=== PATIENT | male | born 1990 | race African-American/Black ===

== ENCOUNTER 2024-04-04 09:40 | Day surgery (SDC) | payer OTHER ==
[2024-04-04 10:46] VITALS: TEMP 97
[2024-04-04] MEDS: LACTATED RINGERS 1,000 ML IV SCH (10:55)
[2024-04-04] MEDS ORDERED: PROPOFOL 10 MG/ML 20 ML VIAL IV ONE (12:12)
[2024-04-04] MEDS ORDERED: LIDOCAINE HCL/PF 20 MG/ML 10 ML AMP ONE (12:12)
--- NOTE | 2024-04-04 12:24 | P.PCN ---
Date of Procedure: 04/04/24 Procedure(s) Performed: BRIEF HISTORY: Patient is a 33-year-old, pleasant, -[place] man scheduled for an upper endoscopy as a part evaluation epigastric pain for the last several months duration. PROCEDURE PERFORMED: Esophagogastroduodenoscopy with biopsy. PREOPERATIVE DIAGNOSIS: Chronic epigastric pain. IV sedation per anesthesia. PROCEDURE: After informed consent was obtained, the patient was brought into the endoscopy unit. IV sedation was administered by Anesthesia under continuous monitoring. Initially the Olympus GIF-140 video endoscope was inserted into the mouth. Esophagus intubated without any difficulty. It was gradually advanced into the stomach and duodenum and carefully examined. The bulb and the second part of the duodenum appeared normal. Biopsies were done from the duodenum to rule out celiac disease the scope at this time was withdrawn to the stomach, adequately insufflated with air, and upon careful examination, mucosa of the antrum had mild antral gastritis and biopsies were done from this area. Mucosa of the, body, cardia and the fundus appeared normal. The scope was then withdrawn into the esophagus. The GE junction was located at 45 cm from the incisors. The mucosal folds in the distal esophagus appeared slightly thickened with longitudinal ridges suspicious for eosinophilic esophagitis and multiple biopsies were done from mid and distal esophagus. Rest of the esophagus appeared normal and the patient tolerated the procedure well. IMPRESSION: 1. Mild antral gastritis. 2. Thickened distal esophageal folds suspicious for eosinophilic esophagitis s/p multiple biopsies. RECOMMENDATIONS: The findings of this examination were discussed with the patient as well as his family. He was advised to follow with the biopsy results. He will be seen in the office in 2 to 3 weeks..
[2024-04-04 12:37] VITALS: RESP 18
[2024-04-04 12:54] VITALS: BP 129/80; PULSE 67
== END 2024-04-04 13:17 | disposition home or self-care (01) ==
LOC: ORWHC2ENDO 09:40
PROVIDERS: ATTEND Internal Medicine Gastroenterology
DX: K29.50 Unspecified chronic gastritis without bleeding (principal); K29.80 Duodenitis without bleeding; K22.89 Other specified disease of esophagus; G47.33 Obstructive sleep apnea (adult) (pediatric)
CPT/HCPCS: 88305; 43239; J2003; J2704

== ENCOUNTER → 2024-05-19 | Outpatient (CLI) | payer OTHER ==
--- NOTE | 2024-05-19 09:52 | US ---
EXAMINATION TYPE: US abdomen complete DATE OF EXAM: 05/19/2024 COMPARISON: NONE CLINICAL INDICATION: Male, 33 years old with history of R10.9 UNSPECIFIED ABDOMINAL PAIN; LUQ pain on and off x months TECHNIQUE: Grayscale and color Doppler imaging of the abdomen was performed. FINDINGS: EXAM MEASUREMENTS: Liver Length: 14.9 cm Gallbladder Wall: 0.22 cm CBD: 0.55 cm, color Doppler imaging was utilized to isolate the common bile duct for measurement. Spleen: 10.7 cm Right Kidney: 12.5 x 5.5 x 5.3 cm Left Kidney: 12.9 x 6.5 x 7.1 cm TREE THINNER NOTES: Slightly limited due to overlying bowel gas Pancreas: limited due to bowel gas Liver: wnl, no dilated ducts, masses or cysts. Gallbladder: wnl Evidence for sonographic Penn's sign: No CBD: wnl Spleen: wnl Right Kidney: wnl, No hydronephrosis, calculi or masses seen Left Kidney: wnl, No hydronephrosis, calculi or masses seen Upper IVC: wnl Abd Aorta: wnl The liver is homogenous. The intrahepatic portion of the IVC and visualized abdominal aorta are with in normal limits. There is no evidence of cholelithiasis. Common bile duct is unremarkable. The vi sualized portions of the pancreas are homogenous. The spleen is unremarkable. Kidneys are symmetric and free of hydronephrosis. No renal lesions are seen. IMPRESSION: No acute findings are seen. [facility], , 05/19/2024 9:50 AM
== END | disposition home or self-care (01) ==
LOC: RADUSWWP 08:31
PROVIDERS: ATTEND Internal Medicine Gastroenterology
DX: R10.12 Left upper quadrant pain (principal)
CPT/HCPCS: 76700